=== PATIENT | male | born 2000 | race African-American/Black ===

== ENCOUNTER 2021-01-15 21:45 | Emergency (ER) | payer MEDICAID, SELFPAY ==
[2021-01-15 23:01] VITALS: BP 139/88; PULSE 66; RESP 16; TEMP 36.8; O2SAT 98; BMI 23.3
--- NOTE | 2021-01-15 23:07 | PC.NURSE ---
PT WAS SEEN AT URGENT CARE GIVEN SULFAMETHOXAZOLE FOR ANTIBIOTIC FINGER WAS NOTE DRAINED AT URGENT CARE SWOLLEN AND PAINFUL AT NAIL BED.
--- NOTE | 2021-01-16 01:10 | ED.EXTPRO ---
HPI - Extremity Problem General Chief complaint: Extremity Injury, Upper Stated complaint: ?Finger infection Time Seen by Provider: 01/16/21 00:20 Source: patient Mode of arrival: ambulatory Limitations: no limitations History of Present Illness HPI Narrative: Patient reports that he bumped his right middle finger on the truck and 2 days ago he had swelling of his finger around his nail. He was put on antibiotic at urgent care, however reports that his finger started swelling more and throbbing. Patient denies any others symptoms. Quality: aching Radiation: none Related Data Previous Rx's Medication Instructions Recorded doxycycline hyclate 100 mg capsule 100 mg PO BID #20 cap 01/16/21 ibuprofen 600 mg tablet 600 mg PO Q8H PRN #20 tab 01/16/21 Allergies Allergy/AdvReac Type Severity Reaction Status Date / Time No Known Allergies Allergy Unverified 01/22/20 17:18 [No Known Allergies*] Review of Systems Review of Systems: Constitutional : No Weight loss, No Fever, No Chills, No Night Sweats, No Fatigue, No Malaise ENT/Mouth : No Hearing loss, No Ear Pain, No Nasal Congestion, No Sinus Pain, No Hoarseness, No sore throat, No Rhinorrhea, No Swallowing Difficulty Eyes: No Eye Pain, No Swelling, No Redness, No Foreign Body, No Discharge, No Vision Changes Cardiovascular : No Chest Pain, No SOB, No Dyspnea on Exertion, No Orthopnea, No Edema, No Palpitations Respiratory : No Cough, No Sputum, No Wheezing, No Smoke Exposure, No Dyspnea Gastrointestinal : No Nausea, No Vomiting, No Diarrhea, No Constipation, No abdominal Pain, No Hematochezia, No Melena Genitourinary : no irregular bleeding, No Dysuria, No Urinary Frequency, No Hematuria, No Urinary Incontinence, No Urgency, No Flank Pain, No Urinary Flow Changes, No Hesitancy Musculoskeletal : No joint pain, No Myalgias, No Joint Swelling Skin : No Skin Lesions, No rash, right middle finger sore Neuro : No Weakness, No Numbness, No Paresthesias, No Loss of Consciousness, No Dizziness, No Headache Yes all other systems are reviewed and are negative [facility] Social History Social History Advance Directives: No Physical Exam Vital Signs: Vital Signs: Last Vital Signs Temp 98.3 F 01/15/21 23:01 Pulse 66 01/15/21 23:01 Resp 16 01/15/21 23:01 BP 139/88 01/15/21 23:01 Pulse Ox 98 01/15/21 23:01 Body Mass Index 23.3 Const: General: healthy appearing, no acute distress and well developed Nutritional Appearance: well nourished Orientation/consciousness: patient oriented x3 HENMT: Head: Yes normal to inspection, Yes normocephalic and Yes atraumatic Ears: hearing grossly normal bilaterally Neck: Neck: Yes normal visual inspection, Yes full ROM and Yes trachea midline Thyroid: Thyroid normal Resp: Auscultation: clear to auscultation bilaterally Cardio: Rate: regular rate Rhythm: regular rhythm GI: Inspection: Yes normal to inspection and No distended Palpation (GI): No hepatosplenomegaly present Auscultation: normal bowel sounds Skin: General skin exam: elasticity normal, turgor normal and dry skin Trauma: other Nails: other (Right middle finger paronychia) Neuro: General: patient oriented x3 Course Course Course Narrative: 20-year-old male is here for right middle finger paronychia. Patient reports that hit his finger when he was opening door to his truck and 3 days ago started with the swelling. Went to urgent care and was placed on Bactrim. Today he presents with increased swelling and throbbing like pain. Significant paronychia. Will do digital block and I&D abscess. Will change his antibiotics to doxycycline. I will have patient follow-up with PCP in 3 days. He may return to emergency department to recheck his wound. He was instructed to return if his symptoms will get worse Procedures Abscess I/D Site: hand (Right middle finger paronychia) Side (if applicable): right Local Anesthetic: lidocaine 2% Amount of anesthesia used (mL): 5 Sent for culture/gram staining?: No Packing used?: iodoform Discharge Plan Discharge Clinical Impression: Paronychia Patient Disposition: Home, Self-Care Instructions: Paronychia (ED) Additional Instructions: You were seen here today for your right middle finger infection. Year abscess was drained and packing was placed. You may remove the packing after 3 days. Please follow-up with your primary care doctor in 2-3 days. You may return to emergency department if you will have worsening symptoms. You may return to emergency department 3 days to recheck you wound. You will be started on a different antibiotic. Your 1st dose was given today. Please make sure you continue the antibiotics and finish the whole course. Prescriptions: New doxycycline hyclate 100 mg capsule 100 mg PO BID Qty: 20 RF: 0 ibuprofen 600 mg tablet 600 mg PO Q8H PRN (Reason: pain) Qty: 20 RF: 0 Interventions: ED Discharge Assessment Last Done: 01/16/21 01:53 Discharge Date/Time: 01/16/21 01:55
--- NOTE | 2021-01-16 01:18 | PC.NURSE ---
PT FINGER CLEANED AND DRAINED BY LAZARA [employer]ARD APPLIED.
[2021-01-16] MEDS: Lidocaine HCl 2 % MPF 5 ML VIAL SUBCUT (01:26)
== END 2021-01-16 01:55 | disposition home or self-care (01) ==
PROVIDERS: Emergency Provider Student in an Organized Health Care Education/Training Program
DX: L03.011 Cellulitis of right finger (principal)
CPT/HCPCS: 10060; 99283; 99284